=== PATIENT | male | born 1950 | race Caucasian/White ===

== ENCOUNTER → 2017-03-04 | Outpatient (CLI) | payer MEDICARE, OTHER ==
[2017-03-04 10:24] LABS: HEMATOCRIT 48.5 % (39.2-51.8); HEMOGLOBIN 16.6 g/dL (13.7-18.0); WHITE BLOOD COUNT 6.8 x10^3/uL (3.4-10)
[2017-03-04 10:37] LABS: ASPARTATE AMINO TRANSFERASE 22 U/L (15-37); BLOOD UREA NITROGEN 22 mg/dL (7-18)
[2017-03-04 10:46] LABS: PATH.CAST-FLAG NOT PRESENT; SPERM-FLAG NOT PRESENT; SRC-FLAG NOT PRESENT; XTAL-FLAG NOT PRESENT; YLC-FLAG NOT PRESENT
== END | disposition home or self-care (01) ==
LOC: LAB 10:13
PROVIDERS: ATTEND Family Medicine
DX: H90.A32 Mixed conductive and sensorineural hearing loss, unilateral, left ear with restricted hearing on the contralateral side (principal); E78.2 Mixed hyperlipidemia; E11.8 Type 2 diabetes mellitus with unspecified complications; R31.9 Hematuria, unspecified
CPT/HCPCS: 36415; 80053; 80061; 81001; 83036; 84443; 85025

== ENCOUNTER → 2017-10-07 | Outpatient (CLI) | payer MEDICARE ==
[2017-10-07 08:26] LABS: BASOPHILS # (AUTO) 0.04 x10^3/uL (0-0.1); BASOPHILS % (AUTO) 1 % (0-1); EOSINOPHILS # (AUTO) 0.13 x10^3/uL (0-0.4); EOSINOPHILS % (AUTO) 2 % (1-7); LYMPHOCYTES # (AUTO) 1.89 x10^3/uL (1-3.4); LYMPHOCYTES % (AUTO) 26 % (22-44); MD NO; MEAN CORPUSCULAR HGB CONC 33.7 g/dL (33.2-36.2); MEAN PLATELET VOLUME 8.5 fL (7.4-10.4); MONOCYTES # (AUTO) 0.57 x10^3/uL (0.2-0.8); MONOCYTES % (AUTO) 8 % (2-9); NEUTROPHILS # (AUTO) 4.52 x10^3/uL (1.8-6.8); NEUTROPHILS % (AUTO) 63 % (42-75); PLATELET COUNT 208 x10^3/uL (130-400); RED BLOOD COUNT 5.05 x10^6/uL (4.38-5.82); RED CELL DISTRIBUTION WIDTH 13.2 % (9.4-14.8)
[2017-10-07 08:28] LABS: ALANINE AMINOTRANSFERASE 26 U/L (12-78); ALBUMIN 3.3 g/dL (3.4-5.0); ANION GAP 6 mmol/L (5-15); CALCIUM 8.4 mg/dL (8.5-10.1); CHLORIDE 110 mmol/L (98-107); CHOLESTEROL, TOTAL 218 mg/dL (140-239); CREATININE 1.13 mg/dL (0.7-1.3)
[2017-10-07 08:38] LABS: ALKALINE PHOSPHATASE 74 U/L (45-117); BILIRUBIN,TOTAL 0.5 mg/dL (0.2-1.0); HDL CHOL % 14 % (26-37); HDL CHOLESTEROL (DIRECT) 31 mg/dL (40-60); LDL CHOLESTEROL,CALCULATED 139 mg/dL (54-169); LDL/HDL RATIO 4.5 (0.5-3.0); PSA SCREEN 2.79 ng/mL (0.00-4.00); TOTAL PROTEIN 6.8 g/dL (6.4-8.2); TRIGLYCERIDES 241 mg/dL (50-200); VLDL CHOLESTEROL 48 mg/dL (0-25)
[2017-10-07 09:21] LABS: HEMOGLOBIN A1C 6.3 % (4.2-6.3)
== END | disposition home or self-care (01) ==
LOC: LAB 08:02
PROVIDERS: ATTEND Family Medicine
DX: Z12.5 Encounter for screening for malignant neoplasm of prostate (principal); E78.2 Mixed hyperlipidemia; R73.03 Prediabetes; R53.81 Other malaise
CPT/HCPCS: 36415; 80053; 80061; 83036; 84443; 85025; G0103

== ENCOUNTER → 2018-02-16 | Outpatient (CLI) | payer MEDICARE ==
[2018-02-16 08:12] LABS: BASOPHILS # (AUTO) 0.08 x10^3/uL (0-0.1); BASOPHILS % (AUTO) 1 % (0-1); EOSINOPHILS # (AUTO) 0.13 x10^3/uL (0-0.4); EOSINOPHILS % (AUTO) 2 % (1-7); LYMPHOCYTES # (AUTO) 2.34 x10^3/uL (1-3.4); LYMPHOCYTES % (AUTO) 34 % (22-44); MD NO; MEAN CORPUSCULAR HEMOGLOBIN 31.1 pg (27.5-34.5); MEAN CORPUSCULAR HGB CONC 33.8 g/dL (33.2-36.2); MEAN CORPUSCULAR VOLUME 91.9 fL (81-97); MEAN PLATELET VOLUME 8.1 fL (7.4-10.4); MONOCYTES # (AUTO) 0.64 x10^3/uL (0.2-0.8); MONOCYTES % (AUTO) 9 % (2-9); NEUTROPHILS # (AUTO) 3.77 x10^3/uL (1.8-6.8); NEUTROPHILS % (AUTO) 54 % (42-75); PLATELET COUNT 218 x10^3/uL (130-400); RED BLOOD COUNT 5.26 x10^6/uL (4.38-5.82); RED CELL DISTRIBUTION WIDTH 13.1 % (9.4-14.8)
[2018-02-16 08:14] LABS: ALANINE AMINOTRANSFERASE 23 U/L (12-78); ALBUMIN 3.7 g/dL (3.4-5.0); ANION GAP 6 mmol/L (5-15); CALCIUM 8.2 mg/dL (8.5-10.1); CHLORIDE 107 mmol/L (98-107); CREATININE 1.25 mg/dL (0.7-1.3)
[2018-02-16 08:24] LABS: ALKALINE PHOSPHATASE 68 U/L (45-117); BILIRUBIN,TOTAL 0.6 mg/dL (0.2-1.0); TOTAL PROTEIN 7.1 g/dL (6.4-8.2)
== END | disposition home or self-care (01) ==
LOC: LAB 07:51
PROVIDERS: ATTEND Family Medicine
DX: E78.5 Hyperlipidemia, unspecified (principal); L04.0 Acute lymphadenitis of face, head and neck; R10.9 Unspecified abdominal pain; E78.00 Pure hypercholesterolemia, unspecified
CPT/HCPCS: 36415; 80053; 82150; 83690; 84443; 85025

== ENCOUNTER 2018-07-16 09:54 | Day surgery (SDC) | payer MEDICARE ==
[~2018-07-16] VITALS: Ht 175.3 cm; Wt 81.8 kg
[2018-07-16 10:32] VITALS: BP 144/82
[2018-07-16] MEDS ORDERED: RIVA15TA PO (10:38)
[2018-07-16] MEDS ORDERED: ALPR0.25 PO (10:38)
[2018-07-16] MEDS ORDERED: METO50TA82 PO (10:38)
[2018-07-16] MEDS ORDERED: CLON1TAB11 PO (10:38)
[2018-07-16 10:57] LABS: ANION GAP 6 mmol/L (5-15); CALCIUM 8.9 mg/dL (8.5-10.1); CHLORIDE 106 mmol/L (98-107)
[2018-07-16 10:58] LABS: CREATININE 1.16 mg/dL (0.7-1.3)
[2018-07-16] MEDS ORDERED: FLEC50TA25 PO (12:42)
[2018-07-16] MEDS ORDERED: PROPOFOL 10 MG/ML, 20ML ONE (15:22)
== END 2018-07-16 12:56 | disposition home or self-care (01) ==
LOC: CACL 09:54
PROVIDERS: ATTEND Internal Medicine Cardiovascular Disease
DX: I48.0 Paroxysmal atrial fibrillation (principal)
CPT/HCPCS: 36415; 80048; 92960; J2704

== ENCOUNTER 2018-10-02 08:09 | Day surgery (SDC) | payer MEDICARE ==
[~2018-10-02] VITALS: Ht 175.3 cm; Wt 81.0 kg
[~2018-10-02 08:09] MED LIST: ALPR0.25 PO; CLON1TAB11 PO; FLEC50TA25 PO; METO50TA82 PO; RIVA15TA PO
[2018-10-02 08:46] VITALS: BP 133/87
[2018-10-02] MEDS ORDERED: PROPOFOL 10 MG/ML, 20ML ONE (08:52)
[2018-10-02 08:58] LABS: ANION GAP 5 mmol/L (5-15); CHLORIDE 110 mmol/L (98-107); CREATININE 1.22 mg/dL (0.7-1.3)
== END 2018-10-02 09:46 | disposition home or self-care (01) ==
LOC: CACL 08:09
PROVIDERS: ATTEND Internal Medicine Cardiovascular Disease
DX: I48.0 Paroxysmal atrial fibrillation (principal); I10 Essential (primary) hypertension; G47.33 Obstructive sleep apnea (adult) (pediatric); E66.3 Overweight; Z68.28 Body mass index [BMI] 28.0-28.9, adult; Z79.01 Long term (current) use of anticoagulants; Z79.899 Other long term (current) drug therapy; Z88.8 Allergy status to other drugs, medicaments and biological substances
CPT/HCPCS: 36415; 80048; 92960; J2704

== ENCOUNTER → 2019-06-03 | Outpatient (CLI) | payer MEDICARE | END | disposition home or self-care (01) | LOC: CFH 07:40 | PROVIDERS: ATTEND Physician Assistant Medical | DX: I34.0 Nonrheumatic mitral (valve) insufficiency (principal); I48.0 Paroxysmal atrial fibrillation; I10 Essential (primary) hypertension | CPT/HCPCS: 93306 ==

== ENCOUNTER → 2019-06-22 | Outpatient (CLI) | payer MEDICARE ==
[~2019-06-22] MED LIST changes: +OMNIPAQUE 350 MG/ML, 100ML BOTTLE ONE
[2019-06-22 12:55] LABS: CREATININE 1.27 mg/dL (0.7-1.3)
== END | disposition home or self-care (01) ==
LOC: RAD 12:20
PROVIDERS: ATTEND Internal Medicine Cardiovascular Disease
DX: Z01.818 Encounter for other preprocedural examination (principal); I25.10 Atherosclerotic heart disease of native coronary artery without angina pectoris; I48.0 Paroxysmal atrial fibrillation
CPT/HCPCS: 36415; 71046; 75572; 82565; Q9967

== ENCOUNTER 2019-07-02 06:12 | Inpatient (IN) | payer MEDICARE ==
[~2019-07-02] VITALS: Ht 175.3 cm; Wt 96.9 kg
[~2019-07-02 06:12] MED LIST changes: -OMNIPAQUE 350 MG/ML, 100ML BOTTLE ONE
[2019-07-02] MEDS ORDERED: SODIUM CHLORIDE 0.9% 1,000 ML IV SCH ×2 (06:36→07:00)
[2019-07-02 06:41] VITALS: BP 137/91
[2019-07-02] MEDS ORDERED: SAW1CAPS6 PO (06:47)
[2019-07-02] MEDS ORDERED: FISH OIL PO (06:47)
[2019-07-02] MEDS ORDERED: DILT120C2 PO (06:47)
[2019-07-02 07:16] LABS: BASOPHILS # (AUTO) 0.04 x10^3/uL (0-0.1); BASOPHILS % (AUTO) 1 % (0-1); EOSINOPHILS # (AUTO) 0.12 x10^3/uL (0-0.4); EOSINOPHILS % (AUTO) 2 % (1-7); LYMPHOCYTES # (AUTO) 1.62 x10^3/uL (1-3.4); LYMPHOCYTES % (AUTO) 27 % (22-44); MD NO; MEAN CORPUSCULAR HEMOGLOBIN 30.8 pg (27.5-34.5); MEAN CORPUSCULAR HGB CONC 32.9 g/dL (33.2-36.2); MEAN CORPUSCULAR VOLUME 93.6 fL (81-97); MEAN PLATELET VOLUME 8.1 fL (7.4-10.4); MONOCYTES # (AUTO) 0.55 x10^3/uL (0.2-0.8); MONOCYTES % (AUTO) 9 % (2-9); NEUTROPHILS # (AUTO) 3.57 x10^3/uL (1.8-6.8); NEUTROPHILS % (AUTO) 61 % (42-75); PLATELET COUNT 221 x10^3/uL (130-400); RED BLOOD COUNT 5.21 x10^6/uL (4.38-5.82); RED CELL DISTRIBUTION WIDTH 13.2 % (9.4-14.8)
[2019-07-02 07:26] LABS: ANION GAP 5 mmol/L (5-15); CALCIUM 8.6 mg/dL (8.5-10.1); CHLORIDE 108 mmol/L (98-107); CREATININE 1.15 mg/dL (0.7-1.3)
[2019-07-02] MEDS ORDERED: LIDOCAINE 1%, 20ML ONE (07:29)
[2019-07-02] MEDS ORDERED: MIDAZOLAM 1 MG/ML, 2ML ONE (08:01)
[2019-07-02] MEDS ORDERED: FENTANYL PF 250 MCG/5ML ONE (08:01)
[2019-07-02] MEDS ORDERED: PROPOFOL 50 ML ONE (08:01)
[2019-07-02] MEDS ORDERED: ROCURONIUM 10 MG/ML,10ML ONE (08:10)
[2019-07-02] MEDS ORDERED: ONDANSETRON 2MG/ML, 2ML ONE (08:10)
[2019-07-02] MEDS ORDERED: SUCCINYLCHOLINE 20 MG/ML, 10ML ONE (09:23)
[2019-07-02] MEDS ORDERED: HEPARIN 1,000 UNITS/ML, 10ML ONE ×2 (09:23)
[2019-07-02] MEDS ORDERED: ONDANSETRON ODT 8 MG PO PRN (10:00)
[2019-07-02] MEDS ORDERED: OXYcodone 5 MG/5 ML ORAL.SOL UDC PO PRN (10:00)
[2019-07-02] MEDS ORDERED: PROMETHAZINE 25 MG/ML, 1ML IV PRN (10:00)
[2019-07-02] MEDS ORDERED: MORPHINE SULFATE 4 MG/ML, 1ML IVPush PRN (10:00)
[2019-07-02] MEDS ORDERED: MIDAZOLAM 1 MG/ML, 2ML IV PRN (10:00)
[2019-07-02] MEDS ORDERED: EPHEDRINE 50 MG/ML, 1ML IM PRN (10:00)
[2019-07-02] MEDS ORDERED: ONDANSETRON 2MG/ML, 2ML IV PRN (10:00)
[2019-07-02] MEDS ORDERED: DIPHENHYDRAMINE 50 MG/ML, 1ML IVPush PRN (10:00)
[2019-07-02] MEDS ORDERED: EPHEDRINE 50 MG/ML, 1ML IVPush PRN (10:00)
[2019-07-02] MEDS ORDERED: ACETAMINOPHEN 325 MG TABLET PO PRN ×2 (10:00→12:30)
[2019-07-02] MEDS ORDERED: DIAZEPAM 5 MG/ML, 2ML IVPush PRN (10:00)
[2019-07-02] MEDS ORDERED: FENTANYL PF 100 MCG/2ML IV PRN (10:00)
[2019-07-02] MEDS: RIVAROXABAN 20 MG TABLET PO SCH (12:49)
[2019-07-02 14:27] VITALS: BP 142/87
[2019-07-02] MEDS: SOTALOL 80MG TABLET PO SCH (17:18)
[2019-07-02 19:39] VITALS: BP 128/85
[2019-07-02] MEDS: OMEGA-3/FISH OIL CAPSULE PO SCH (20:52)
[2019-07-02] MEDS: COLCHICINE 0.6 MG CAPSULE PO SCH (20:52)
[2019-07-03 01:16] VITALS: BP 107/73
[2019-07-03] MEDS: RIVAROXABAN 20 MG TABLET PO SCH (05:56)
[2019-07-03] MEDS: SOTALOL 80MG TABLET PO SCH ×2 (05:56→17:38)
[2019-07-03 07:15] VITALS: BP 116/77
[2019-07-03] MEDS: OMEGA-3/FISH OIL CAPSULE PO SCH ×2 (08:16→20:57)
[2019-07-03] MEDS: COLCHICINE 0.6 MG CAPSULE PO SCH ×2 (08:16→20:57)
[2019-07-03] MEDS ORDERED: [UNRECOGNIZED DRUG - OTHER] PO SCH (09:00)
[2019-07-03] MEDS ORDERED: ZINC PICOLIN PO SCH (09:00)
[2019-07-03] MEDS ORDERED: SAW PALMETTO XTR PO SCH (09:00)
[2019-07-03] MEDS ORDERED: RIVAROXABAN 15 MG TABLET PO SCH (09:00)
[2019-07-03] MEDS ORDERED: DILTIAZEM 90 MG CAP.ER.12H PO SCH (09:00)
[2019-07-03] MEDS ORDERED: KETOROLAC 30 MG/1 ML IM ONE (10:00)
[2019-07-03] MEDS: DIPHENHYDRAMINE 25 MG CAPSULE PO PRN ×2 (10:57→21:18)
[2019-07-03 13:50] VITALS: BP 108/67
[2019-07-03 20:49] VITALS: BP 130/83
[2019-07-04 01:53] VITALS: BP 122/74
[2019-07-04 06:20] VITALS: BP 118/77
[2019-07-04] MEDS: RIVAROXABAN 20 MG TABLET PO SCH (06:24)
[2019-07-04] MEDS: SOTALOL 80MG TABLET PO SCH ×2 (06:24→17:51)
[2019-07-04 06:58] VITALS: BP 123/74
[2019-07-04] MEDS: OMEGA-3/FISH OIL CAPSULE PO SCH ×2 (07:55→21:00)
[2019-07-04] MEDS: COLCHICINE 0.6 MG CAPSULE PO SCH ×2 (07:55→21:00)
[2019-07-04 12:50] VITALS: BP 130/79
[2019-07-04 21:03] VITALS: BP 108/64
[2019-07-04] MEDS ORDERED: GUAIFENESIN/DM 200-20MG, 10ML UDC PO PRN (21:30)
[2019-07-05 02:00] VITALS: BP 122/88
[2019-07-05] MEDS: RIVAROXABAN 20 MG TABLET PO SCH (05:21)
[2019-07-05] MEDS: SOTALOL 80MG TABLET PO SCH (05:21)
[2019-07-05 08:34] VITALS: BP 118/69
[2019-07-05] MEDS: OMEGA-3/FISH OIL CAPSULE PO SCH (08:44)
[2019-07-05] MEDS: COLCHICINE 0.6 MG CAPSULE PO SCH (09:00)
[2019-07-05] MEDS ORDERED: SOTA80TA18 PO (10:09)
== END 2019-07-05 11:00 | disposition home or self-care (01) | DRG 273 ==
LOC: CACL 06:12 → 5SO 14:20 → CACL 22:54 → 5SO 22:55 → 3WST 07-05 01:34
PROVIDERS: ADMIT Internal Medicine Cardiovascular Disease; ATTEND Family Medicine
PROC: 4A0234Z Measurement of Cardiac Electrical Activity, Percutaneous Approach (ICD-10-PCS; 2019-07-02)
PROC: B24BZZZ Ultrasonography of Heart with Aorta (ICD-10-PCS; 2019-07-02)
PROC: 02583ZZ Destruction of Conduction Mechanism, Percutaneous Approach (ICD-10-PCS; principal; 2019-07-02 08:00)
DX: I48.0 Paroxysmal atrial fibrillation (principal); I50.31 Acute diastolic (congestive) heart failure; I31.9 Disease of pericardium, unspecified; J98.11 Atelectasis; D68.69 Other thrombophilia; I44.0 Atrioventricular block, first degree; I48.92 Unspecified atrial flutter; F41.9 Anxiety disorder, unspecified
CPT/HCPCS: 36415; 71045; 80048; 85025; 85347; 93005; 93308; 93312; 93321; 93325; 93613; 93655; 93656; 93657; 93662; C1766; C1893; C1894; G0378; J1644; J1885; J2250; J2405; J2704; J3010; C1730; C1759; J0330; Q0163

== ENCOUNTER 2019-07-09 14:54 | Emergency (ER) | payer MEDICARE ==
[~2019-07-09] VITALS: Ht 175.3 cm; Wt 89.0 kg
[~2019-07-09 14:54] MED LIST changes: +DILT120C2 PO; +FISH OIL PO; +SAW1CAPS6 PO; +SOTA80TA18 PO
--- NOTE | 2019-07-09 15:30 | NUR ---
PT S/P ABLATION FOR AFIB ONE WK AGO, PT STATES THAT EVER SINCE HE HAS FELT HOT AND DIZZY. PT STATES HE FELT HE WAS IN AFIB THIS AFTERNOON, HE KNOWS HE IS NOW OUT OF IT. PT IS CURRENTLY ON MONITOR SR/SB 50-60S. PT DENIES CP/SOB PT TO ALL MONITORS
--- NOTE | 2019-07-09 15:32 | NUR ---
COMPLETED VITALS AND EKG WHILE PT WAS IN TRIAGE.
[2019-07-09 15:33] VITALS: BP 157/88
[2019-07-09 16:07] LABS: BASOPHILS # (AUTO) 0.05 x10^3/uL (0-0.1); BASOPHILS % (AUTO) 1 % (0-1); EOSINOPHILS # (AUTO) 0.12 x10^3/uL (0-0.4); EOSINOPHILS % (AUTO) 2 % (1-7); LYMPHOCYTES # (AUTO) 1.54 x10^3/uL (1-3.4); LYMPHOCYTES % (AUTO) 24 % (22-44); MD NO; MEAN CORPUSCULAR HEMOGLOBIN 31.1 pg (27.5-34.5); MEAN CORPUSCULAR HGB CONC 33.6 g/dL (33.2-36.2); MEAN CORPUSCULAR VOLUME 92.6 fL (81-97); MEAN PLATELET VOLUME 7.6 fL (7.4-10.4); MONOCYTES # (AUTO) 0.59 x10^3/uL (0.2-0.8); MONOCYTES % (AUTO) 9 % (2-9); NEUTROPHILS # (AUTO) 4.09 x10^3/uL (1.8-6.8); NEUTROPHILS % (AUTO) 64 % (42-75); PLATELET COUNT 249 x10^3/uL (130-400); RED BLOOD COUNT 4.33 x10^6/uL (4.38-5.82); RED CELL DISTRIBUTION WIDTH 12.9 % (9.4-14.8)
[2019-07-09 16:19] LABS: ALANINE AMINOTRANSFERASE 21 U/L (12-78); ALBUMIN 3.1 g/dL (3.4-5.0); ANION GAP 3 mmol/L (5-15); CALCIUM 8.5 mg/dL (8.5-10.1); CHLORIDE 109 mmol/L (98-107)
[2019-07-09 16:24] LABS: ALKALINE PHOSPHATASE 71 U/L (45-117); BILIRUBIN,TOTAL 0.4 mg/dL (0.2-1.0); TOTAL PROTEIN 7.1 g/dL (6.4-8.2); TROPONIN I 0.068 ng/mL (0.000-0.045)
--- NOTE | 2019-07-09 17:06 | NUR ---
first contact with pt. Patient/Caregiver given discharge instructions and they have confirmed that they understand the instructions. Patient ambulatory with steady gait. pt left with all personal belongings.
== END 2019-07-09 17:08 | disposition home or self-care (01) ==
LOC: ED 15:38
DX: R42 Dizziness and giddiness (principal); R06.00 Dyspnea, unspecified; R00.1 Bradycardia, unspecified; R94.31 Abnormal electrocardiogram [ECG] [EKG]; I48.91 Unspecified atrial fibrillation; I48.92 Unspecified atrial flutter
CPT/HCPCS: 36415; 71045; 80053; 83605; 84484; 85025; 93005; 99285

== ENCOUNTER 2019-10-04 08:24 | Outpatient (CLI) | payer MEDICARE ==
[2019-10-04 09:15] LABS: BASOPHILS # (AUTO) 0.04 x10^3/uL (0-0.1); BASOPHILS % (AUTO) 1 % (0-1); EOSINOPHILS # (AUTO) 0.13 x10^3/uL (0-0.4); EOSINOPHILS % (AUTO) 2 % (1-7); LYMPHOCYTES # (AUTO) 1.94 x10^3/uL (1-3.4); LYMPHOCYTES % (AUTO) 32 % (22-44); MD NO; MEAN CORPUSCULAR HEMOGLOBIN 30.7 pg (27.5-34.5); MEAN PLATELET VOLUME 7.7 fL (7.4-10.4); MONOCYTES # (AUTO) 0.58 x10^3/uL (0.2-0.8); MONOCYTES % (AUTO) 9 % (2-9); NEUTROPHILS # (AUTO) 3.45 x10^3/uL (1.8-6.8); NEUTROPHILS % (AUTO) 56 % (42-75); PLATELET COUNT 218 x10^3/uL (130-400); RED BLOOD COUNT 4.76 x10^6/uL (4.38-5.82); RED CELL DISTRIBUTION WIDTH 13.2 % (9.4-14.8)
[2019-10-04 09:27] LABS: ALANINE AMINOTRANSFERASE 23 U/L (12-78); ALBUMIN 3.4 g/dL (3.4-5.0); ANION GAP 4 mmol/L (5-15); CALCIUM 8.8 mg/dL (8.5-10.1); CHLORIDE 110 mmol/L (98-107); CREATININE 1.05 mg/dL (0.7-1.3)
[2019-10-04 09:33] LABS: ALKALINE PHOSPHATASE 80 U/L (45-117); BILIRUBIN,TOTAL 0.3 mg/dL (0.2-1.0); TOTAL PROTEIN 7.2 g/dL (6.4-8.2)
[2019-10-04 09:43] LABS: MICROSCOPIC INDICATED
[2019-10-05 08:44] LABS: CHOL/HDL RATIO 7.3; CHOLESTEROL, TOTAL 234 mg/dL (140-239); HDL CHOL % 14 % (26-37); HDL CHOLESTEROL (DIRECT) 32 mg/dL (40-60); LDL CHOLESTEROL,CALCULATED 144 mg/dL (54-169); LDL/HDL RATIO 4.5 (0.5-3.0); TRIGLYCERIDES 291 mg/dL (50-200); VLDL CHOLESTEROL 58 mg/dL (0-25)
== END 2019-10-04 23:59 | disposition home or self-care (01) ==
LOC: LAB 08:24
PROVIDERS: ATTEND Family Medicine
DX: E78.5 Hyperlipidemia, unspecified (principal); N40.0 Benign prostatic hyperplasia without lower urinary tract symptoms; I49.9 Cardiac arrhythmia, unspecified; N39.0 Urinary tract infection, site not specified; M54.9 Dorsalgia, unspecified; Z79.01 Long term (current) use of anticoagulants; Z79.891 Long term (current) use of opiate analgesic
CPT/HCPCS: 36415; 80053; 80061; 83036; 83690; 84153; 85025